=== PATIENT | female | born 1955 | race Caucasian/White ===

== ENCOUNTER → 2017-09-17 | Outpatient (CLI) | payer BC, OTHER ==
[~2017-09-17] MED LIST: ASPIR 8181 M1 PO; FLUTICASONE PRO16 GM NS; UNICOMPLEX M TA1 TA1 PO; VITAMIN D2000 UNIT PO
== END ==
LOC: RAD 11:11
DX: Z12.31 Encounter for screening mammogram for malignant neoplasm of breast (principal)

== ENCOUNTER → 2019-04-18 | Outpatient (CLI) | payer BC, OTHER | LOC: RAD 11:45 | DX: Z12.31 Encounter for screening mammogram for malignant neoplasm of breast (principal) ==

== ENCOUNTER → 2021-03-26 | Outpatient (CLI) | payer BC, OTHER | LOC: RAD 10:12 | PROVIDERS: ATTEND Obstetrics & Gynecology | DX: Z12.31 Encounter for screening mammogram for malignant neoplasm of breast (principal) ==